=== PATIENT | female | born 1945 | race Caucasian/White ===

== ENCOUNTER 2017-06-21 22:21 | Emergency (ER) | payer MEDICARE ==
[~2017-06-21] VITALS: Ht 152.4 cm; Wt 74.0 kg
[~2017-06-21 22:21] MED LIST: ALPR1 PO; ASPI81TA82 PO; BACL10TA PO; FLUO20TA20 PO; HYDR-3580 PO; SIMV40 PO; TEMA30CA PO; ZYPR10TA OR
[2017-06-21] MEDS ORDERED: oxyCODONE/ACETAMINOPHEN 5 MG/325 MG TAB PO ONE (23:15)
[2017-06-21 23:24] VITALS: BP 191/96; PULSE 71; RESP 20; TEMP 97.6; O2SAT 100
--- NOTE | 2017-06-21 23:52 | RADRPT ---
EXAM DATE/TIME: 06/21/2017 23:22 [facility] COMPARISON: No previous studies available for comparison. INDICATIONS : Status post fall hitting back of head, no LOC RADIATION DOSE: 67.37 CTDIvol (mGy) MEDICAL HISTORY : Spinal stenosis. SURGICAL HISTORY : None. ENCOUNTER: Initial ACUITY: 1 day PAIN SCALE: LOCATION: Bilateral cranial TECHNIQUE: Multiple contiguous axial images were obtained of the head. Using automated exposure control and adj ustment of the mA and/or kV according to patient size, radiation dose was kept as low as reasonably a chievable to obtain optimal diagnostic quality images. DICOM format image data is available electro nically for review and comparison. FINDINGS: CEREBRUM: The ventricles are normal for age. No evidence of midline shift, mass lesion, hemorrhage or acute in farction. No extra-axial fluid collections are seen. POSTERIOR FOSSA: The cerebellum and brainstem are intact. The 4th ventricle is midline. The cerebellopontine angle i s unremarkable. EXTRACRANIAL: The visualized portion of the orbits is intact. SKULL: The calvaria is intact. No evidence of skull fracture. CONCLUSION: Normal examination for a patient of this age. Rigo Rowan MD on June 21, 2017 at 23:49 Board Certified Radiologist. This report was verified electronically.
--- NOTE | 2017-06-21 23:53 | RADRPT ---
EXAM DATE/TIME: 06/21/2017 23:22 [facility] COMPARISON: No previous studies available for comparison. INDICATIONS : Status post fall. Back and neck pain. C-collar in place RADIATION DOSE: 26.61 CTDIvol (mGy) MEDICAL HISTORY : Spinal stenosis. SURGICAL HISTORY : None. ENCOUNTER: Initial ACUITY: 1 day PAIN SCALE: 7/10 LOCATION: neck TECHNIQUE: Volumetric scanning of the cervical spine was performed. Multiplanar reconstructions in the sagittal, coronal and oblique axial planes were performed. Using automated exposure control and adjustment o f the mA and/or kV according to patient size, radiation dose was kept as low as reasonably achievable to obtain optimal diagnostic quality images. DICOM format image data is available electronically f or review and comparison. FINDINGS: Severe disc space narrowing at C2-3, C4-5 through C6-7. Mild disc space C3-4. Multilevel osteophyte f ormation is present. Odontoid process is intact. No prevertebral soft tissue swelling or compression deformity. Multilevel uncovertebral hypertrophy is noted. The cervicothoracic junction is approximate d. Moderate bilateral foraminal narrowing is noted at C4-5 secondary to uncovertebral hypertrophy. Se patricia bilateral foraminal stenosis at C5-6 secondary to facet and uncovertebral hypertrophy. A diffuse disc osteophyte complex results in moderate to severe canal stenosis at C5-6. At C6-7-1 diffuse disc osteophyte complex and uncovertebral hypertrophy are identified resulting in mild canal narrowing an d moderate bilateral foraminal stenosis. No fractures are seen. CONCLUSION: Degenerative changes are noted without evidence for acute fracture or listhesis. Rigo Rowan MD on June 21, 2017 at 23:49 Board Certified Radiologist. This report was verified electronically.
--- NOTE | 2017-06-21 23:56 | RADRPT ---
EXAM DATE/TIME: 06/21/2017 23:18 [facility] COMPARISON: No previous studies available for comparison. INDICATIONS : Left hip pain post fall. MEDICAL HISTORY : Spinal stenosis SURGICAL HISTORY : None. ENCOUNTER: Initial ACUITY: 1 day PAIN SCORE: 5/10 LOCATION: Left pelvis FINDINGS: Bone density is diminished. I do not see a fracture. Posterior nadine and transpedicular screw fixation of the lower lumbar spine is noted. CONCLUSION: No definite fractures. Diminished bone density. Rigo Rowan MD on June 21, 2017 at 23:53 Board Certified Radiologist. This report was verified electronically.
--- NOTE | 2017-06-21 23:57 | RADRPT ---
EXAM DATE/TIME: 06/21/2017 23:18 [facility] COMPARISON: No previous studies available for comparison. INDICATIONS : Entire right knee pain post fall. MEDICAL HISTORY : Spinal stenosis SURGICAL HISTORY : None. ENCOUNTER: Initial ACUITY: 1 day PAIN SCORE: 7/10 LOCATION: Right knee FINDINGS: Decreased bone density. Spurring of the tibial spines and narrowing of the medial greater than latera l tibiofemoral compartments. No effusion, fracture or dislocation. CONCLUSION: No acute disease. Rigo Rowan MD on June 21, 2017 at 23:54 Board Certified Radiologist. This report was verified electronically.
[2017-06-22] MEDS ORDERED: HYDR-4361 (00:10)
[2017-06-22] MEDS ORDERED: TEMA30CA PO (00:10)
[2017-06-22] MEDS ORDERED: HYDR-3583 PO (00:10)
[2017-06-22] MEDS ORDERED: PROZ20CA11 PO (00:10)
[2017-06-22] MEDS ORDERED: ZOCO40TA PO (00:10)
[2017-06-22] MEDS ORDERED: ALPR.5 PO (00:10)
--- NOTE | 2017-06-22 00:27 | RADRPT ---
EXAM DATE/TIME: 06/21/2017 23:28 [facility] COMPARISON: CT LUMBAR SPINE W/O CONTRAST, June 21, 2017, 23:28. CT CERVICAL SPINE W/O CONTRAST, June 21, 2017, 23:22. INDICATIONS : Status post fall. Back pain RADIATION DOSE: 43.73 CTDIvol (mGy) ; Combined studies - Thoracic Spine/Lumbar Spine MEDICAL HISTORY : Spinal stenosis. SURGICAL HISTORY : Fusion, lumbar. ENCOUNTER: Initial ACUITY: 1 day PAIN SCALE: 8/10 LOCATION: middle back TECHNIQUE: Volumetric scanning of the thoracic spine was performed. Multiplanar reconstructions in the sagittal , coronal and oblique axial planes were performed. Using automated exposure control and adjustment o f the mA and/or kV according to patient size, radiation dose was kept as low as reasonably achievable to obtain optimal diagnostic quality images. DICOM format image data is available electronically f or review and comparison. FINDINGS: The patient has a nonacute mild compression deformity of T9 with a prominent inferior endplate Schmor l node. Previous vertebroplasty has been performed at T10-T12 where mild, moderate and severe thomas blanca fracture deformities are noted, nonacute. There is mild disc space narrowing and mild multilevel osteophyte formation. No acute fractures are seen. There is a mild central disc protrusion at T7-8 w ithout canal or foraminal narrowing. CONCLUSION: Remote compression deformities and degenerative changes. No acute findings. Rigo Rowan MD on June 22, 2017 at 0:22 Board Certified Radiologist. This report was verified electronically.
--- NOTE | 2017-06-22 00:30 | RADRPT ---
EXAM DATE/TIME: 06/21/2017 23:28 [facility] COMPARISON: SPINE LUMBAR LTD (AP & LAT), September 04, 2013, 17:58. CT THORACIC SPINE W/O CONTRAST, June 21, 23:28. INDICATIONS : Status post fall. Back pain RADIATION DOSE: 43.73 CTDIvol (mGy) ; Combined studies - Thoracic Spine/Lumbar Spine MEDICAL HISTORY : Spinal stenosis. SURGICAL HISTORY : Fusion, lumbar. ENCOUNTER: Initial ACUITY: 1 day PAIN SCALE: 8/10 LOCATION: Low back TECHNIQUE: Volumetric scanning of the lumbar spine was performed. Multiplanar reconstructions in the sagittal, coronal and oblique axial planes were performed. Using automated exposure control and adjustment of the mA and/or kV according to patient size, radiation dose was kept as low as reasonably achievable t o obtain optimal diagnostic quality images. DICOM format image data is available electronically for review and comparison. FINDINGS: There are mild, moderate and severe respective compression fractures at T10-T12, nonacute and status post vertebroplasty. There is a nonacute Schmorl node at the inferior endplate of L1 with mild loss o f vertebral body height. The patient is status post posterior nadine and transpedicular screw fixation a t L4-5. There is sclerosis and endplate irregularity along the inferior endplate of L4 and superior p late of L5, chronic in appearance. There is some lucency seen surrounding the fixation screws at L4 a nd L5 on the left knee, and fracture of the right L5 transpedicular screw is again seen. Moderate fac et hypertrophic changes. Anterior osteophytosis. Vacuum disc phenomenon throughout the lumbar spine. Moderate disc space narrowing L5-S1. Mild dextroscoliosis of the lumbar spine centered at L4. There i s severe foraminal stenosis at L4-5 and L5-S1 bilaterally. CONCLUSION: Degenerative changes are noted and postsurgical changes without evidence for acute fracture. Rigo Rowan MD on June 22, 2017 at 0:25 Board Certified Radiologist. This report was verified electronically.
--- NOTE | 2017-06-22 01:29 | PD ---
HPI Chief Complaint: Fall Time Seen by Provider: 22:50 Travel History International Travel<30 days: No Contact w/Intl Traveler<30days: No Traveled to known affect area: No History of Present Illness HPI Patient is a 71-year-old female who comes in after a fall. She states she was trying to sit down in a chair when the chair went out from under her and she fell onto her backside. She says she did fall back and hit the back of her head. She complains of pain to her lower back and her right knee. She denies any loss of consciousness. She says she was feeling in her normal state of health prior to falling. She denies chest pain or shortness of breath. She denies abdominal pain, nausea or vomiting. She denies numbness or tingling of her extremities. Severity is mild to moderate. Movement makes her symptoms worse. PFSH Past Medical History Asthma: No Autoimmune Disease: No Blood Disorders: No Anxiety: Yes Depression: Yes Cancer: No Cardiovascular Problems: No COPD: No Diabetes: No Diminished Hearing: No Endocrine: No GERD: No Genitourinary: No Hepatitis: No Hiatal Hernia: No Musculoskeletal: Yes Neurologic: No Psychiatric: Yes Respiratory: Yes Sleep Apnea: No Thyroid Disease: No Ulcer: No Influenza Vaccination: Yes Past Surgical History Thoracic Surgery: Yes (SPONDALOYSIS) Other Surgery: Yes Social History Alcohol Use: No Tobacco Use: No Substance Use: No Allergies-Medications (Allergen,Severity, Reaction): Coded Allergies: amoxicillin (Unverified Allergy, Severe, 06/21/17) clavulanic acid (Unverified Allergy, Severe, 06/21/17) erythromycin base (Unverified Allergy, Severe, 06/21/17) Uncoded Allergies: IODINE (Allergy, Severe, REACTION DURING CAT SCAN-BREATHING TROUBLE, ) LATEX (Allergy, Severe, HANDS BLEED, 10/04/04) Reported Meds & Prescriptions Reported Meds & Active Scripts Active Reported Zocor (Simvastatin) 40 Mg Tab 40 Mg PO DAILY Temazepam 30 Mg Cap 30 Mg PO HS PRN Prozac (Fluoxetine HCl) 20 Mg Cap 20 Mg PO DAILY Hydrocodone-Acetamin 10-325 mg (Hydrocodone/Acetaminophen) 10 Mg-325 Mg Tablet 10 Mg PO Q6HR Xanax (Alprazolam) 0.5 Mg Tab 0.5 Mg PO Q6H PRN Review of Systems Except as stated in HPI: all other systems reviewed are Neg General / Constitutional: No: Fever, Chills Eyes: No: Drainage HENT: No: Headaches, Lightheadedness Cardiovascular: No: Chest Pain or Discomfort Respiratory: No: Shortness of Breath Gastrointestinal: No: Nausea, Vomiting Musculoskeletal: Positive: Pain Skin: No Rash, No Change in Pigmentation Neurologic: No: Weakness, Dizziness, Syncope Physical Exam Narrative GENERAL: Awake and alert, in no acute distress. SKIN: Focused skin assessment warm/dry. No wounds or signs of infection. HEAD: Atraumatic. Normocephalic. EYES: Pupils equal and round. No scleral icterus. Extraocular movements intact. ENT: Mucous membranes pink and moist. NECK: Trachea midline. No JVD. CARDIOVASCULAR: Regular rate and rhythm. No murmur appreciated. RESPIRATORY: No accessory muscle use. Clear to auscultation. Breath sounds equal bilaterally. GASTROINTESTINAL: Abdomen soft, non-tender, nondistended. MUSCULOSKELETAL: No obvious deformities. No clubbing. No cyanosis. No edema. Tender to palpation of the lumbar spine as well as the right knee. NEUROLOGICAL: Awake and alert. No obvious cranial nerve deficits. Motor grossly within normal limits. Normal speech. PSYCHIATRIC: Appropriate mood and affect; insight and judgment normal. Data Data Last Documented VS Vital Signs Date Time Temp Pulse Resp B/P (MAP) Pulse Ox O2 Delivery O2 Flow Rate FiO2 06/22/17 03:54 88 18 149/63 (91) 98 06/21/17 23:[address] Brain W/O Iv Contrast(Rout) (06/21/17 ) Ct Cerv Spine W/O Contrast (06/21/17 ) Ct Thor Spine W/O Contrast (06/21/17 ) Ct Lumb Spine W/O Contrast (06/21/17 ) Pelvis, Ap Only (Routine) (06/21/17 ) Knee, Complete (4vws) (06/21/17 ) Oxycodone-Acetamin 5-325 Mg (Percocet (06/21/17 23:15) Ed Discharge Order (06/22/17 01:29) MDM Medical Decision Making Medical Screen Exam Complete: Yes Emergency Medical Condition: Yes Medical Record Reviewed: Yes Differential Diagnosis Head injury versus spine injury versus knee injury Narrative Course Patient is a 71-year-old female who comes in after a fall. Exam shows tenderness along her spine as well as the right knee. CT head and C-spine as well as CT of the thoracic and lumbar spine show no acute abnormalities. Pelvis x-ray shows no acute abnormalities. Knee x-ray shows no acute abnormalities. Last 24 hours Impressions Thoracic Spine CT 06/21/17 0000 Signed Impressions: Service Date/Time: Wednesday, June 21, 2017 23:28 - CONCLUSION: Remote compression deformities and degenerative changes. No acute findings. Rigo Rowan MD Pelvis X-Ray 06/21/17 0000 Signed Impressions: Service Date/Time: Wednesday, June 21, 2017 23:18 - CONCLUSION: No definite fractures. Diminished bone density. Rigo Rowan MD Lumbar Spine CT 06/21/17 0000 Signed Impressions: Service Date/Time: Wednesday, June 21, 2017 23:28 - CONCLUSION: Degenerative changes are noted and postsurgical changes without evidence for acute fracture. Rigo Rowan MD Knee X-Ray 06/21/17 0000 Signed Impressions: Service Date/Time: Wednesday, June 21, 2017 23:18 - CONCLUSION: No acute disease. Rigo Rowan MD Head CT 06/21/17 0000 Signed Impressions: Service Date/Time: Wednesday, June 21, 2017 23:22 - CONCLUSION: Normal examination for a patient of this age. Rigo Rowan MD Cervical Spine CT 06/21/17 0000 Signed Impressions: Service Date/Time: Wednesday, June 21, 2017 23:22 - CONCLUSION: Degenerative changes are noted without evidence for acute fracture or listhesis. Rigo Rowan MD Given pain medicine. She will be discharged home. Advised follow-up with her doctor. Advised to return to the ED as needed for any worsening symptoms. Diagnosis Primary Impression: Fall Qualified Codes: W19.XXXA - Unspecified fall, initial encounter Patient Instructions: Fall Prevention (ED), General Instructions Additional Instructions: Take your pain medicine as needed. Follow up with your doctor. Return to the ED as needed for any worsening symptoms. Disposition: DISCHARGE HOME Condition: Stable Nicole Moreira MD Jun 22, 2017 01:29
[2017-06-22 03:54] VITALS: BP 149/63; PULSE 88; RESP 18; O2SAT 98
== END 2017-06-22 07:12 | disposition home or self-care (01) ==
LOC: PHED 22:21
DX: M54.5 Low back pain (principal); M25.561 Pain in right knee; W07.XXXA Fall from chair, initial encounter
CPT/HCPCS: 70450; 72125; 72128; 72131; 72170; 73564; 99284